=== PATIENT | male | born 1980 | race Hispanic/Latino ===

== ENCOUNTER 2021-07-09 08:19 | Outpatient (CLI) | payer OTHER | END 2021-07-09 08:20 | disposition home or self-care (01) | LOC: CSHRAD 08:19 | PROVIDERS: ATTEND Surgery | DX: Z93.2 Ileostomy status (principal); K57.30 Diverticulosis of large intestine without perforation or abscess without bleeding | CPT/HCPCS: 74270 ==

== ENCOUNTER 2021-09-13 10:21 | Outpatient (CLI) | payer BC | END 2021-09-13 10:22 | disposition home or self-care (01) | LOC: CSHCT 10:21 | PROVIDERS: ATTEND Surgery | DX: K43.2 Incisional hernia without obstruction or gangrene (principal); K43.9 Ventral hernia without obstruction or gangrene; Z98.890 Other specified postprocedural states; K76.0 Fatty (change of) liver, not elsewhere classified | CPT/HCPCS: 74177 ==